=== PATIENT | male | born 1985 | race Caucasian/White ===

== ENCOUNTER 2016-09-29 11:28 | Emergency (ER) | payer OTHER ==
[2016-09-29 12:00] LABS: HEMOGLOBIN 17.3 gm/dl (14.0-17.5); RED BLOOD COUNT 5.2 M/UL (4.20-5.50); WHITE BLOOD COUNT 15.2 K/UL (4.5-11.0)
[2016-09-29 12:16] LABS: BUN/CREATININE RATIO 12 (0-10)
== END 2016-09-29 15:15 | disposition home or self-care (01) ==
LOC: ER1 11:28
PROVIDERS: Physician Assistant Medical
DX: L02.612 Cutaneous abscess of left foot (principal); F17.210 Nicotine dependence, cigarettes, uncomplicated; Z88.1 Allergy status to other antibiotic agents; Z88.2 Allergy status to sulfonamides
CPT/HCPCS: 36415; 73630; 80053; 85025; 96365; 96372; 96375; 99283; J0875; J3370; J7050

== ENCOUNTER 2016-10-01 20:13 | Emergency (ER) | payer OTHER | END 2016-10-01 21:18 | disposition left against medical advice (07) | LOC: ER1 20:13 | DX: Z53.21 Procedure and treatment not carried out due to patient leaving prior to being seen by health care provider (principal) ==